=== PATIENT | male | born 1975 | race Caucasian/White ===

== ENCOUNTER 2017-02-03 16:54 | Emergency (ER) | payer SELFPAY ==
[~2017-02-03 16:54] MED LIST: BACL10TA PO; HYDR50CA PO; IBUP1TAB7 PO; IBUP800T23 PO; ZYPR10TA PO
[2017-02-03 16:56] VITALS: BP 142/87; PULSE 120; RESP 20; TEMP 99.2; O2SAT 94
[2017-02-03 17:25] VITALS: PULSE 118; RESP 15; O2SAT 97
--- NOTE | 2017-02-03 17:31 | PD ---
HPI Chief Complaint: Medical Clearance Time Seen by Provider: 17:14 (La Cowan) Time Seen by Provider: 17:14 (Dionne Vyas DO) Travel History International Travel<30 days: No Contact w/Intl Traveler<30days: No Traveled to known affect area: No (La Cowan) History of Present Illness HPI 41-year-old male presents to the emergency department stating that he wants detox from cocaine. Patient reports history of schizophrenia, states he does not believe he had she has schizophrenia. He was prescribed Zyprexa, but has not taken. Upon my questioning, the patient has bizarre. He believes that this freemasons are out to get him and they have tapped his TV. He talks about his mother being raped and makes no sense. He is alert and oriented to person, place, time, this bizarre. Patient believes that his neighbors are out to get him. Patient denies any other illicit drug use. He denies any medical complaints at this time. He has no pain. Moderate severity. (La Cowan) [facility] Past Medical History Arthritis: Yes (IN BACK) Asthma: No Autoimmune Disease: No Blood Disorders: No Anxiety: No Depression: No Heart Rhythm Problems: No Cancer: No Cardiovascular Problems: No High Cholesterol: No Chemotherapy: No Chest Pain: No Congestive Heart Failure: No COPD: No Cerebrovascular Accident: No Diabetes: No Diminished Hearing: No Endocrine: No Gastrointestinal Disorders: Yes GERD: Yes Glaucoma: No Genitourinary: No Headaches: Yes (per patient he experiences a migraine everyday for the past year) Hepatitis: No Hiatal Hernia: No Hypertension: No Immune Disorder: No Kidney Stones: No Musculoskeletal: Yes Neurologic: No Psychiatric: No Reproductive: No Respiratory: No Migraines: No Myocardial Infarction: No Radiation Therapy: No Renal Failure: No Seizures: No Sickle Cell Disease: No Sleep Apnea: No Thyroid Disease: No Ulcer: No Influenza Vaccination: No (La Cowan) Past Surgical History Surgical History: No Previous Surgery Abdominal Surgery: No AICD: No Appendectomy: No Arteriovenous Shunt: No Cardiac Surgery: No Cholecystectomy: No Ear Surgery: No Endocrine Surgery: No Eye Surgery: No Genitourinary Surgery: No Gynecologic Surgery: No Insulin Pump: No Joint Replacement: No Oral Surgery: No Pacemaker: No Thoracic Surgery: No (La Cowan) Social History Alcohol Use: Yes (occas) Tobacco Use: Yes Substance Use: Yes (cocaine-wants detox) (La Cowan) Allergies-Medications (Allergen,Severity, Reaction): Coded Allergies: No Known Allergies (Verified Adverse Reaction, Unknown, 02/03/17) Reported Meds & Prescriptions Reported Meds & Active Scripts Active No Active Prescriptions or Reported Medications (Dionne Vyas DO) Review of Systems Except as stated in HPI: all other systems reviewed are Neg (La Cowan) Physical Exam Narrative GENERAL: Well-nourished, well-developed male patient, afebrile. Patient is alert and oriented to person, place, time. SKIN: Focused skin assessment warm/dry. HEAD: Normocephalic. Atraumatic. EYES: No scleral icterus. No injection or drainage. NECK: Supple, trachea midline. No JVD or lymphadenopathy. CARDIOVASCULAR: Regular rate and rhythm without murmurs, gallops, or rubs. RESPIRATORY: Breath sounds equal bilaterally. No accessory muscle use. Lungs sounds are clear to auscultation. GASTROINTESTINAL: Abdomen soft, non-tender, nondistended. MUSCULOSKELETAL: No cyanosis, or edema. PSYCHIATRIC: Patient appears delusional believing that the neighbors are out to get him and they have bugged his TV. (La Cowan) Data Data Last Documented VS Vital Signs Date Time Temp Pulse Resp B/P (MAP) Pulse Ox O2 Delivery O2 Flow Rate FiO2 02/04/17 06:42 85 18 96/63 (74) Room Air 02/03/17 21:17 95 02/03/17 16:56 99.2 (Dionne Vyas DO) Orders Orders Complete Blood Count With Diff (02/03/17 17:24) Comprehensive Metabolic Panel (02/03/17 17:24) Psych Screen (02/03/17 17:24) Drug Screen, Random Urine (02/03/17 17:24) Alcohol (Ethanol) (02/03/17 17:24) Chest, Single Ap (02/03/17 ) Urinalysis - C+S If Indicated (02/03/17 18:21) Sodium Chlor 0.9% 1000 Ml Inj (Ns 1000 M (02/03/17 18:45) Electrocardiogram (02/03/17 ) Troponin I (02/03/17 18:30) Diet Regular Basic (02/04/17 Breakfast) Acetaminophen (Tylenol) (02/03/17 21:30) (Dionne Vyas DO) Labs Laboratory Tests Test 02/03/17 17:25 02/03/17 17:27 02/03/17 18:30 White Blood Count 17.4 TH/MM3 Red Blood Count 4.14 MIL/MM3 Hemoglobin 14.2 GM/DL Hematocrit 41.2 % Mean Corpuscular Volume 99.4 FL Mean Corpuscular Hemoglobin 34.3 PG Mean Corpuscular Hemoglobin Concent 34.5 % Red Cell Distribution Width 14.0 % Platelet Count 300 TH/MM3 Mean Platelet Volume 8.2 FL Neutrophils (%) (Auto) 85.4 % Lymphocytes (%) (Auto) 9.5 % Monocytes (%) (Auto) 4.6 % Eosinophils (%) (Auto) 0.2 % Basophils (%) (Auto) 0.3 % Neutrophils # (Auto) 14.8 TH/MM3 Lymphocytes # (Auto) 1.7 TH/MM3 Monocytes # (Auto) 0.8 TH/MM3 Eosinophils # (Auto) 0.0 TH/MM3 Basophils # (Auto) 0.1 TH/MM3 CBC Comment DIFF FINAL Differential Comment Urine Opiates Screen NEG Urine Barbiturates Screen NEG Urine Amphetamines Screen NEG Urine Benzodiazepines Screen NEG Urine Cocaine Screen POS Urine Cannabinoids Screen NEG Urine Color YELLOW Urine Turbidity CLEAR Urine pH 5.5 Urine Specific [place] 1.035 Urine Protein 100 mg/dL Urine Glucose (UA) NEG mg/dL Urine Ketones NEG mg/dL Urine Occult Blood NEG Urine Nitrite NEG Urine Bilirubin NEG Urine Urobilinogen 2.0 MG/DL Urine Leukocyte Esterase NEG Urine RBC 1 /hpf Urine WBC 3 /hpf Urine Amorphous Sediment RARE Urine Hyaline Casts 13 /lpf Urine Mucus FEW /lpf Microscopic Urinalysis Comment CULT NOT INDICATED Blood Urea Nitrogen 18 MG/DL Creatinine 1.13 MG/DL Random Glucose 77 MG/DL Total Protein 7.7 GM/DL Albumin 4.0 GM/DL Calcium Level 8.6 MG/DL Alkaline Phosphatase 70 U/L Aspartate Amino Transf (AST/SGOT) 19 U/L Alanine Aminotransferase (ALT/SGPT) 20 U/L Total Bilirubin 0.2 MG/DL Sodium Level 140 MEQ/L Potassium Level 3.8 MEQ/L Chloride Level 108 MEQ/L Carbon Dioxide Level 21.7 MEQ/L Anion Gap 10 MEQ/L Estimat Glomerular Filtration Rate 72 ML/MIN Troponin I LESS THAN 0.02 NG/ML Ethyl Alcohol Level LESS THAN 3 MG/DL (Dionne Vyas DO) [facility] Medical Decision Making Medical Screen Exam Complete: Yes Emergency Medical Condition: Yes Medical Record Reviewed: Yes Interpretation(s) Last Impressions Chest X-Ray 02/03/17 0000 Signed Impressions: Service Date/Time: Friday, February 03, 2017 18:39 - CONCLUSION: No acute disease. Pardeep Esparza MD Differential Diagnosis Schizophrenia versus psychosis versus substance abuse Narrative Course 41-year-old male presents to the emergency department requesting detox from cocaine. However, upon my questioning, he is delusional bizarre. He does have history of schizophrenia and is noncompliant with his medications. CBC, CMP, alcohol level, urine drug screen are ordered and pending. CBC shows leukocytosis of 17.4. CMP shows no acute abnormality. Alcohol level is less than 3. UDS is positive for cocaine. Due to tachycardia, leukocytosis, cocaine use. EKG, troponin, Chest x-ray, UA were ordered and pending. EKG shows sinus tachycardia, heart rate 103, no acute ST changes. UA is negative for acute infection. X-ray shows no acute disease. Leukocytosis most likely due to stress reaction. Patient denies any sources of infection. Denies any pain. No open areas. No cough or congestion. He has no complaints. Patient is medically cleared for psychiatric screening and disposition. (La Cowan) Diagnosis Primary Impression: Schizophrenia Qualified Codes: F20.9 - Schizophrenia, unspecified Additional Impression: Cocaine abuse Scripts No Active Prescriptions or Reported Meds Condition: Stable La Cowan Feb 03, 2017 17:31 Dionne Vyas DO Feb 04, 2017 08:59
[2017-02-03 17:56] LABS: AUTOMATED NEUTROPHIL # 14.8 TH/MM3 (1.8-7.7); BASOPHIL # 0.1 TH/MM3 (0-0.2); BASOPHIL % 0.3 % (0.0-2.0); EOSINOPHIL % 0.2 % (0.0-4.0); HEMATOCRIT 41.2 % (39.0-51.0); HEMO FLAGS DIFF FINAL; LYMPH % 9.5 % (9.0-44.0); LYMPHOCYTE # 1.7 TH/MM3 (1.0-4.8); MEAN CELL VOLUME 99.4 FL (80.0-100.0); MEAN CORPUSCULAR HEMOGLOBIN 34.3 PG (27.0-34.0); MEAN CORPUSCULAR HGB CONC 34.5 % (32.0-36.0); MONO % 4.6 % (0.0-8.0); NEUT % 85.4 % (16.0-70.0); PLATELET COUNT 300 TH/MM3 (150-450); RED BLOOD COUNT 4.14 MIL/MM3 (4.50-5.90); WHITE BLOOD COUNT 17.4 TH/MM3 (4.0-11.0)
[2017-02-03 18:30] LABS: BLOOD, URINE NEG (NEG); COMMENT (UR) CULT NOT INDICATED; CULTURE IF INDICATED CULT NOT INDICATED; GLUCOSE,URINE NEG (NEG); HYALINE CAST, URINE 13 /lpf (RARE); KETONE, URINE NEG (NEG); MUCUS URINE FEW /lpf (OCC); NITRITE,URINE NEG (NEG); PH, URINE 5.5 (5.0-8.5); URINE COLOR YELLOW (YELLW/STRAW)
[2017-02-03] MEDS ORDERED: SODIUM CHLOR 0.9% 1000 ML INJ 1,000 ML IV ONE (18:45)
--- NOTE | 2017-02-03 19:13 | RADRPT ---
EXAM DATE/TIME: 02/03/2017 18:39 [facility] COMPARISON: No previous studies available for comparison. INDICATIONS : Short of breath and cough. MEDICAL HISTORY : Asthma. SURGICAL HISTORY : None. ENCOUNTER: Initial ACUITY: 1 day PAIN SCORE: 0/10 LOCATION: Bilateral chest FINDINGS: A single view of the chest demonstrates the lungs to be symmetrically aerated without evidence of mas s, infiltrate or effusion. The cardiomediastinal contours are unremarkable. Mild scoliosis and degen erative changes of the thoracolumbar spine noted. CONCLUSION: No acute disease. Pardeep Esparza MD on February 03, 2017 at 19:10 Board Certified Radiologist. This report was verified electronically.
[2017-02-03 19:47] LABS: ANION GAP 10 MEQ/L (5-15); AST (GOT) 19 U/L (15-37); BICARBONATE 21.7 MEQ/L (21.0-32.0); BLOOD UREA NITROGEN 18 MG/DL (7-18); CHLORIDE 108 MEQ/L (98-107); GLOMERULAR FILTRATION RATE 72 ML/MIN (>89); POTASSIUM 3.8 MEQ/L (3.5-5.1); SODIUM (NA) 140 MEQ/L (136-145)
[2017-02-03 19:48] LABS: ALT (GPT) 20 U/L (12-78)
[2017-02-03 19:52] LABS: ALKALINE PHOSPHATASE 70 U/L (45-117); TOTAL BILIRUBIN ADULT 0.2 MG/DL (0.2-1.0)
[2017-02-03 19:53] LABS: ALCOHOL LESS THAN 3 MG/DL (0-5)
[2017-02-03 21:17] VITALS: BP 111/61; PULSE 95; RESP 20; O2SAT 95
[2017-02-03] MEDS ORDERED: ACETAMINOPHEN 325 MG TAB PO ONE (21:30)
[2017-02-04 06:42] VITALS: BP 96/63; PULSE 85; RESP 18
[2017-02-04 10:19] VITALS: BP 163/81; PULSE 96; RESP 18; O2SAT 98
--- NOTE | 2017-02-04 12:55 | PD ---
Physical Exam Date Seen by Provider: Feb 04, 2017 Time Seen by Provider: 12:53 Narrative 41-year-old male previously medically cleared for psychiatric evaluation. Was seen by psychiatric staff, and felt to be stable for discharge. Patient remains medically stable for discharge. Please see psychiatric note for follow- up plan. Data Data Last Documented VS Vital Signs Date Time Temp Pulse Resp B/P (MAP) Pulse Ox O2 Delivery O2 Flow Rate FiO2 02/04/17 10:19 96 18 163/81 (108) 98 Room Air 02/03/17 16:56 99.2 Orders Orders Complete Blood Count With Diff (02/03/17 17:24) Comprehensive Metabolic Panel (02/03/17 17:24) Psych Screen (02/03/17 17:24) Drug Screen, Random Urine (02/03/17 17:24) Alcohol (Ethanol) (02/03/17 17:24) Chest, Single Ap (02/03/17 ) Urinalysis - C+S If Indicated (02/03/17 18:21) Sodium Chlor 0.9% 1000 Ml Inj (Ns 1000 M (02/03/17 18:45) Electrocardiogram (02/03/17 ) Troponin I (02/03/17 18:30) Diet Regular Basic (02/04/17 Breakfast) Acetaminophen (Tylenol) (02/03/17 21:30) Diet Regular Basic (02/04/17 Lunch) Labs Laboratory Tests Test 02/03/17 17:25 02/03/17 17:27 02/03/17 18:30 White Blood Count 17.4 TH/MM3 Red Blood Count 4.14 MIL/MM3 Hemoglobin 14.2 GM/DL Hematocrit 41.2 % Mean Corpuscular Volume 99.4 FL Mean Corpuscular Hemoglobin 34.3 PG Mean Corpuscular Hemoglobin Concent 34.5 % Red Cell Distribution Width 14.0 % Platelet Count 300 TH/MM3 Mean Platelet Volume 8.2 FL Neutrophils (%) (Auto) 85.4 % Lymphocytes (%) (Auto) 9.5 % Monocytes (%) (Auto) 4.6 % Eosinophils (%) (Auto) 0.2 % Basophils (%) (Auto) 0.3 % Neutrophils # (Auto) 14.8 TH/MM3 Lymphocytes # (Auto) 1.7 TH/MM3 Monocytes # (Auto) 0.8 TH/MM3 Eosinophils # (Auto) 0.0 TH/MM3 Basophils # (Auto) 0.1 TH/MM3 CBC Comment DIFF FINAL Differential Comment Urine Opiates Screen NEG Urine Barbiturates Screen NEG Urine Amphetamines Screen NEG Urine Benzodiazepines Screen NEG Urine Cocaine Screen POS Urine Cannabinoids Screen NEG Urine Color YELLOW Urine Turbidity CLEAR Urine pH 5.5 Urine Specific [place] 1.035 Urine Protein 100 mg/dL Urine Glucose (UA) NEG mg/dL Urine Ketones NEG mg/dL Urine Occult Blood NEG Urine Nitrite NEG Urine Bilirubin NEG Urine Urobilinogen 2.0 MG/DL Urine Leukocyte Esterase NEG Urine RBC 1 /hpf Urine WBC 3 /hpf Urine Amorphous Sediment RARE Urine Hyaline Casts 13 /lpf Urine Mucus FEW /lpf Microscopic Urinalysis Comment CULT NOT INDICATED Blood Urea Nitrogen 18 MG/DL Creatinine 1.13 MG/DL Random Glucose 77 MG/DL Total Protein 7.7 GM/DL Albumin 4.0 GM/DL Calcium Level 8.6 MG/DL Alkaline Phosphatase 70 U/L Aspartate Amino Transf (AST/SGOT) 19 U/L Alanine Aminotransferase (ALT/SGPT) 20 U/L Total Bilirubin 0.2 MG/DL Sodium Level 140 MEQ/L Potassium Level 3.8 MEQ/L Chloride Level 108 MEQ/L Carbon Dioxide Level 21.7 MEQ/L Anion Gap 10 MEQ/L Estimat Glomerular Filtration Rate 72 ML/MIN Troponin I LESS THAN 0.02 NG/ML Ethyl Alcohol Level LESS THAN 3 MG/DL [facility] Medical Record Reviewed: Yes Supervised Visit with CRISSY: Yes Narrative Course 41-year-old male previously medically cleared for psychiatric evaluation. Was seen by psychiatric staff, and felt to be stable for discharge. Patient remains medically stable for discharge. Please see psychiatric note for follow- up plan. Diagnosis Primary Impression: Schizophrenia Additional Impression: Cocaine abuse Med/Other Pt SpecificInfo: No Change to Meds Scripts No Active Prescriptions or Reported Meds Disposition: DISCHARGE HOME Condition: Stable Oumar Zapata Feb 04, 2017 12:55
--- NOTE | 2017-02-04 13:06 | PD ---
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 He reported to ED staff that he has had a history of schizophrenia but that he did not believe that he had said disorder. He presented with bizarre behavior including reporting that he believed that [employer]emasons are out to get him and they have tapped his television. He also reported that he believed that his neighbors were out to get him. The patient current toxicology was positive for cocaine and his blood alcohol level was 104. Electronic medical record is reviewed. He was admitted to [facility] psychiatric unit in 2016 when he presented to the emergency department acting bizarre in setting of alcohol intoxication. At that time he was prescribed medication but he has not taken the medications since he was discharged. He was monitored in secure environment and presented no agitation, no suicidality. Patient is seen with nurse Maurilio. He is alert, oriented, male dressed in [facility] with disheveled appearance. He is clinically sober. His speech is clear and his gait is steady with no evidence of any symptoms of withdrawal. He states" I came here for a place to stay since I got kicked out of my apartment last night". He goes on to report that he's been having ongoing issues with his neighbor and it culminated with his being evicted from his apartment. Patient stated that the hospital is an appropriate place in the community for him to seek nursing home. " Where else would like have gone last night. " He is requesting discharge at this time and presents no criteria to keep him here against his will. The patient is not wanting any psychiatric treatment at this time. PFSH Past Medical History Arthritis: Yes (IN BACK) Asthma: No Autoimmune Disease: No Blood Disorders: No Anxiety: No Depression: No Heart Rhythm Problems: No Cancer: No Cardiovascular Problems: No High Cholesterol: No Chemotherapy: No Chest Pain: No Congestive Heart Failure: No COPD: No Cerebrovascular Accident: No Diabetes: No Diminished Hearing: No Endocrine: No Gastrointestinal Disorders: Yes GERD: Yes Glaucoma: No Genitourinary: No Headaches: Yes (per patient he experiences a migraine everyday for the past year) Hepatitis: No Hiatal Hernia: No Hypertension: No Immune Disorder: No Kidney Stones: No Musculoskeletal: Yes Neurologic: No Psychiatric: No Reproductive: No Respiratory: No Migraines: No Myocardial Infarction: No Radiation Therapy: No Renal Failure: No Seizures: No Sickle Cell Disease: No Sleep Apnea: No Thyroid Disease: No Ulcer: No Influenza Vaccination: No Past Surgical History Surgical History: No Previous Surgery Abdominal Surgery: No AICD: No Appendectomy: No Arteriovenous Shunt: No Cardiac Surgery: No Cholecystectomy: No Ear Surgery: No Endocrine Surgery: No Eye Surgery: No Genitourinary Surgery: No Gynecologic Surgery: No Insulin Pump: No Joint Replacement: No Oral Surgery: No Pacemaker: No Thoracic Surgery: No Psychiatric History Psychiatric History Hx Psychiatric Treatment: Patient denies history of psychiatric treatment, HAS BEEN TREATED AT [facility] (APR 2015) brief psychotic episode. History of Inpatient Treatment: Yes ([facility] 2015) Social History Single male, currently homeless, unemployed. Hx Alcohol Use: Yes (occas) Hx Tobacco Use: Yes Hx Substance Use: Yes (cocaine-wants detox) Substance Use Type: Alcohol, Cocaine Other Substances Used: Ultram. Hx of Substance Use Treatment: No Family Psychiatric History Negative Allergies-Medications (Allergen,Severity, Reaction): Coded Allergies: No Known Allergies (Verified Adverse Reaction, Unknown, 02/03/17) Reported Meds & Prescriptions Reported Meds & Active Scripts Active No Active Prescriptions or Reported Medications Review of Systems Except as stated in HPI: all other systems reviewed are Neg Mental Status Examination Appearance: Disheveled Consciousness: Alert Orientation: x4 Motor Activity: Normal gait Speech: Unremarkable Language: Adequate Fund of Knowledge: Adequate Attention and Concentration: Adequate Memory: Unremarkable Mood: Appropriate Affect: Appropriate Thought Process & Associations: Intact, Logical, Goal directed Thought Content: Appropriate Hallucination Type: None Delusion Type: None Suicidal Ideation: No Suicidal Plan: No Suicidal Intention: No Homicidal Ideation: No Homicidal Plan: No Homicidal Intention: No Insight: Poor Judgment: Adequate MDM Medical Decision Making Medical Record Reviewed: Yes Assessment/Plan 41-year-old male with 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 He was placed under [place] act by ED staff after he presented with bizarre behavior including reporting that he believes that people were out to get him and they had tapped his television. After extended observation in secure environment and after patient was allowed to sober up clinically, he denied any suicidal or homicidal ideation, he presented no overt psychotic symptoms. He also reported to this commercial loan underwriter that he had come to the hospital because he had no place to stay and he needed to stay here overnight. He is currently requesting to be discharged. The patient does not present any evidence of unstable mental illness as defined under the [place] act at this time. The Val[place] act will be lifted. Psychoeducation is provided. Patient is not wanting to have psychiatric follow- up. Psychiatrically clear for discharge. Orders Orders Complete Blood Count With Diff (02/03/17 17:24) Comprehensive Metabolic Panel (02/03/17 17:24) Psych Screen (02/03/17 17:24) Drug Screen, Random Urine (02/03/17 17:24) Alcohol (Ethanol) (02/03/17 17:24) Chest, Single Ap (02/03/17 ) Urinalysis - C+S If Indicated (02/03/17 18:21) Sodium Chlor 0.9% 1000 Ml Inj (Ns 1000 M (02/03/17 18:45) Electrocardiogram (02/03/17 ) Troponin I (02/03/17 18:30) Diet Regular Basic (02/04/17 Breakfast) Acetaminophen (Tylenol) (02/03/17 21:30) Diet Regular Basic (02/04/17 Lunch) Results Vital Signs Date Time Temp Pulse Resp B/P (MAP) Pulse Ox O2 Delivery O2 Flow Rate FiO2 02/04/17 10:19 96 18 163/81 (108) 98 Room Air 02/04/17 06:42 85 18 96/63 (74) Room Air 02/03/17 21:17 95 20 111/61 (78) 95 Room Air 02/03/17 17:25 118 15 97 Room Air 02/03/17 16:56 99.2 120 20 142/87 (105) 94 Room Air Laboratory Tests Test 02/03/17 17:25 02/03/17 17:27 02/03/17 18:30 White Blood Count 17.4 Red Blood Count 4.14 Hemoglobin 14.2 Hematocrit 41.2 Mean Corpuscular Volume 99.4 Mean Corpuscular Hemoglobin 34.3 Mean Corpuscular Hemoglobin Concent 34.5 Red Cell Distribution Width 14.0 Platelet Count 300 Mean Platelet Volume 8.2 Neutrophils (%) (Auto) 85.4 Lymphocytes (%) (Auto) 9.5 Monocytes (%) (Auto) 4.6 Eosinophils (%) (Auto) 0.2 Basophils (%) (Auto) 0.3 Neutrophils # (Auto) 14.8 Lymphocytes # (Auto) 1.7 Monocytes # (Auto) 0.8 Eosinophils # (Auto) 0.0 Basophils # (Auto) 0.1 CBC Comment DIFF FINAL Differential Comment Urine Opiates Screen NEG Urine Barbiturates Screen NEG Urine Amphetamines Screen NEG Urine Benzodiazepines Screen NEG Urine Cocaine Screen POS Urine Cannabinoids Screen NEG Urine Color YELLOW Urine Turbidity CLEAR Urine pH 5.5 Urine Specific [place] 1.035 Urine Protein 100 Urine Glucose (UA) NEG Urine Ketones NEG Urine Occult Blood NEG Urine Nitrite NEG Urine Bilirubin NEG Urine Urobilinogen 2.0 Urine Leukocyte Esterase NEG Urine RBC 1 Urine WBC 3 Urine Amorphous Sediment RARE Urine Hyaline Casts 13 Urine Mucus FEW Microscopic Urinalysis Comment CULT NOT INDICATED Blood Urea Nitrogen 18 Creatinine 1.13 Random Glucose 77 Total Protein 7.7 Albumin 4.0 Calcium Level 8.6 Alkaline Phosphatase 70 Aspartate Amino Transf (AST/SGOT) 19 Alanine Aminotransferase (ALT/SGPT) 20 Total Bilirubin 0.2 Sodium Level 140 Potassium Level 3.8 Chloride Level 108 Carbon Dioxide Level 21.7 Anion Gap 10 Estimat Glomerular Filtration Rate 72 Troponin I LESS THAN 0.02 Ethyl Alcohol Level LESS THAN 3 Diagnosis Primary Impression: Cocaine abuse Additional Impression: Cocaine-induced psychotic disorder Psychiatrically Cleared: Yes Referrals: [facility] (Out patient) call for appointment Medication Management Departure Forms: Tests/Procedures Patient Instructions: General Instructions, Cocaine Abuse (ED) Med/ Other Pt Specific Info: No Meds Exist/No RX given Prescriptions No Active Prescriptions or Reported Meds Disposition: 01 DISCHARGE HOME Condition: Stable Problem Qualifiers Alena Crawford Feb 04, 2017 13:06
--- NOTE | 2017-02-04 14:42 | EKG ---
Date Performed: 02/03/2017 Time Performed: 19:56:52 PTAGE: 41 years EKG: SINUS TACHYCARDIA MODERATE INTRAVENTRICULAR CONDUCTION DELAY ABNORMAL RHYTHM ECG Compared t o prior tracing no significant change PREVIOUS TRACING : 11/23/2006 10.12 DOCTOR: Brenda Campbell Interpretating Date/Time 02/04/2017 14:38:20
== END 2017-02-04 13:31 | disposition home or self-care (01) ==
LOC: NEPC 16:54 → NEPJ 02-04 13:31
DX: F14.10 Cocaine abuse, uncomplicated (principal); F23 Brief psychotic disorder; R00.0 Tachycardia, unspecified; R94.31 Abnormal electrocardiogram [ECG] [EKG]; F20.9 Schizophrenia, unspecified; K21.9 Gastro-esophageal reflux disease without esophagitis; M47.9 Spondylosis, unspecified; Z59.0 Homelessness; Z72.0 Tobacco use
CPT/HCPCS: 71010; 80053; 80307; 81001; 84484; 85025; 93005; 96360; 99285; J7030